=== PATIENT | female | born 1960 | race Caucasian/White ===

== ENCOUNTER 2016-10-10 12:43 | Day surgery (SDC) | payer MEDICARE ==
[~2016-10-10 12:43] MED LIST: ALENDRONATE SOD70 M2 PO; AZELASTINE137 MCG/01; BACLOFEN10 M1 PO; BENADRYL ALLERG25 M1 PO; CLONAZEPAM1 M2 PO; CYMBALTA; DILTIAZEM 24HR180 M3 PO; DULOXETINE HCL30 M1 PO; ELIQUIS; ELIQUIS5 M1 PO; FLECAINIDE ACE100 M1 PO; FUROSEMIDE40 M2 PO; GABAPENTIN300 M1 PO; HYDROCODON-ACE1 EA16; HYDROCODON-ACE1 EA16 PO; LEVOTHYROXINE50 MC3 PO; LIDOCAINE 5% TD; MIRALAX17 G2 PO; MUPIROCIN1 GM AP; OMEPRAZOLE20 M3 PO; OXYGEN; POTASSIUM CHLO20 ME3 PO; REMOVE PATCH; STOOL SOFTENER100 M3 PO; SUDAFED30 M2 PO; TOPROL XL100 M1 PO; VENTOLIN HFA18 G2 PO; [UNRECOGNIZED DRUG - REMARK]; [UNRECOGNIZED DRUG - REMARK]
[2017-01-01] MEDS ORDERED: FOSAMAX70 M1 PO (10:46)
[2017-01-01] MEDS ORDERED: HYDROCODON-ACE1 EA17 PO (10:47)
[2017-01-01] MEDS ORDERED: TYLENOL EXTRA500 M1 PO (10:48)
== END 2016-10-11 13:46 ==
LOC: SRG 12:43 → SHSC 12:46 → ORW 17:46
PROC: 0WUF0JZ Supplement Abdominal Wall with Synthetic Substitute, Open Approach (ICD-10-PCS; principal; 2016-10-10)
PROC: 0YQ50ZZ Repair Right Inguinal Region, Open Approach (ICD-10-PCS; 2016-10-10)
DX: K43.2 Incisional hernia without obstruction or gangrene (principal); K40.90 Unilateral inguinal hernia, without obstruction or gangrene, not specified as recurrent; M41.9 Scoliosis, unspecified; F32.9 Major depressive disorder, single episode, unspecified; F41.9 Anxiety disorder, unspecified; I73.00 Raynaud's syndrome without gangrene; E03.9 Hypothyroidism, unspecified; K21.9 Gastro-esophageal reflux disease without esophagitis; J45.909 Unspecified asthma, uncomplicated; Z88.0 Allergy status to penicillin; Z88.2 Allergy status to sulfonamides; Z90.49 Acquired absence of other specified parts of digestive tract; Z79.899 Other long term (current) drug therapy; Z98.890 Other specified postprocedural states
CPT/HCPCS: C1781; J1956; J2270; J7030